=== PATIENT | female | born 1990 | race Caucasian/White ===

== ENCOUNTER 2019-07-21 17:25 | Emergency (ER) | payer OTHER, SELFPAY ==
[2019-07-21 17:27] VITALS: BP 144/100; PULSE 96; RESP 18; TEMP 37.2; O2SAT 100
[2019-07-21] MEDS: ONDANSETRON HCL ODT 4 MG TABLET PO (17:47)
[2019-07-21] MEDS: LORAZEPAM 1 MG TABLET PO (17:47)
--- NOTE | 2019-07-21 17:50 | PC.NURSE ---
Patient began complaining of nausea and verbal order for zofran was obtained.
[2019-07-21] MEDS: SODIUM CHLORIDE 0.9% IV 1,000 ML 999 ML IV CONT (18:38)
[2019-07-21] MEDS: KETOROLAC 30 MG/ML VIAL (*BKC) IV PUSH (18:39)
[2019-07-21 18:56] LABS: Basophils Percent Auto 0.2 % (0.2-1.2); Eosinophils Percent Auto 0.5 % (0-4.4); Hematocrit 41.9 % (37.0-47.0); Hemoglobin 13.5 g/dL (12.0-15.0); Immature Granulocyte Absolute 0.03 K/mm3 (0.00-0.031); Immature Granulocyte Percent A 0.3 % (0-0.5); Lymphocytes Absolute Auto 1.98 K/mm3 (0.9-3.2); Lymphocytes Percent Auto 23.1 % (18.3-44.2); Mean Corpuscular HGB Conc 32.2 g/dl (32-36); Mean Corpuscular Hemoglobin 27.6 pg (26-34); Mean Corpuscular Volume 85.7 fl (80-100); Monocytes Absolute Auto 0.6 K/mm3 (0.1-0.6); Monocytes Percent Auto 6.9 % (2.6-8.5); Neutrophils Absolute Auto 5.9 K/mm3 (1.3-6.7); Platelet Count Result 244 k/mm3 (150-375); Red Blood Count 4.89 M/mm3 (4.2-5.4); Red Cell Distribution Width 12.2 % (11.5-14.5); White Blood Count 8.6 K/mm3 (4.5-10.0)
[2019-07-21 19:17] LABS: Alanine Aminotransferase 11 U/L (4-35); Albumin Level 4.7 g/dL (3.5-5.1); Alkaline Phosphatase 53 U/L (38-126); Aspartate Amino Transferase 23 U/L (14-36); Bilirubin,Total 0.3 mg/dL (0.2-1.3); Blood Urea Nitrogen 8 mg/dL (7-17); Calcium 9.5 mg/dL (8.4-10.2); Carbon Dioxide 30 mmol/L (22-30); Chloride 103 mmol/L (98-107); Estimated CRCL calculation 114 ml/min; Estimated Glomerular Filt Rate > 60; Ethanol < 10 mg/dL (<10); Glucose 95 mg/dL (65-105); Potassium 3.8 mmol/L (3.4-5.0); Sodium 139 mmol/L (137-145)
[2019-07-21 19:19] LABS: Add Urine Microscopic? YES; Appearance Urine Clear (Clear); Bilirubin Urine Negative (Negative); Blood Urine Negative (Negative); Color Urine Colorless (Yellow); Glucose Urine UA 1+ mg/dL (Negative); Ketones Urine Negative (Negative); Leukocyte Esterase Ur Negative LEU/UL (Negative); Nitrate Urine Negative (Negative); Protein Urine Negative (Negative); RBC Urine 0-2 /hpf (0-2); Specific Grav Ur 1.006 (1.001-1.035); Urobilinogen Urine Negative mg/dL (<2.0); WBC Urine 0-3 /hpf
[2019-07-21] MEDS: LORAZEPAM INJ 2 MG/ML VIAL 1 MG IV PUSH (19:20)
[2019-07-21] MEDS: METOCLOPRAMIDE HCL INJ 10 MG/2 ML VIAL (19:20)
[2019-07-21 19:29] VITALS: BP 127/89; PULSE 91; RESP 18; O2SAT 97
[2019-07-21 19:30] LABS: Amphetamine Screen Urine Negative (Negative); Barbiturate Screen Urine Negative (Negative); Benzodiazepines Screen Urine Negative (Negative); Cannabinoid Screen Urine Positive (Negative); Cocaine Screen Urine Negative (Negative); Methadone Screen Urine Negative (Negative); Opiate Screen Urine Negative (Negative); Phencyclidine Screen Urine Negative (Negative)
[2019-07-21 19:39] LABS: Thyroid Stimulating Hormone 0.775 uIU/mL (0.465-4.680)
[2019-07-21 21:30] VITALS: BP 119/76; PULSE 82; RESP 12; TEMP 36.6; O2SAT 99
--- NOTE | 2019-07-21 21:42 | ED.ANXIETY ---
HPI - Anxiety General Chief Complaint: Anxiety <IGLESIA Corey Last Filed: 07/21/19 21:46> Stated Complaint: Nervous Breakdown <IGLESIA Corey Last Filed: 07/21/19 21:46> Time Seen by Provider: 07/21/19 17:32 <IGLESIA Corey Last Filed: 07/21/19 21:46> Source: patient <IGLESIA Corey Last Filed: 07/21/19 21:46> Mode of arrival: ambulatory <IGLESIA Corey Last Filed: 07/21/19 21:46> Limitations: no limitations <IGLESIA Corey Last Filed: 07/21/19 21:46> History of Present Illness HPI narrative: Patient is a 28-year-old female who presents emergency department for evaluation of anxiety and stress related to reconnecting with the paternal side of her family patient has been having a conflict with family over a new individual wanting to be involved in her life which has resulted in stress and anxiety and she presents having severe anxiety over the issue. Patient denies any homicidal or suicidal ideation or history of similar occurrence in the past. Patient has not taken anything for her symptoms other than her prescribed medications. Patient lives at home with her family and and children <IGLESIA Corey Last Filed: 07/21/19 21:46> Related Data Home Medications: Home Medications Medication Instructions Recorded Confirmed escitalopram oxalate [Lexapro] PO 07/21/19 <IGLESIA Corey Last Filed: 07/21/19 21:46> Allergies/Adverse Reactions: Allergies Allergy/AdvReac Type Severity Reaction Status Date / Time No Known Allergies Allergy Unverified 07/21/19 17:28 <IGLESIA Corey Last Filed: 07/21/19 21:46> Review of Systems Review of Systems: All systems reviewed & are unremarkable except as noted in HPI and below <IGLESIA Corey Last Filed: 07/21/19 21:46> [facility] [place] Past Medical History Medical History: Medical History (Updated 07/22/19 @ 00:00 by Background Bennett) Abnormal Pap smear of cervix Anxiety <IGLESIA Corey Last Filed: 07/21/19 21:46> Social History Social History: Social History Smoking status: Never smoker Alcohol intake: never Gender identity (if verbalized by the patient): Female <Terry Webb PA-C - Last Filed: 07/21/19 21:46> Exam Narrative: Exam Narrative: GENERAL: Well-appearing, well-nourished, and in no acute distress. HEAD: Normocephalic, atraumatic. EYES: PERRLA and EOMI. ENT: Nares clear, no rhinorrhea or epistaxis. Mucous membranes moist. CHEST: Clear to auscultation. No respiratory distress. No wheezes rales or rhonchi HEART: Regular rate and rhythm. No murmur heard. Normal peripheral pulses. ABDOMEN: Soft, nontender, nondistended EXTREMITIES: Normal range of motion. No edema. SKIN: Warm, dry, no rash. NEURO: No focal deficits. Alert and oriented x3. Cranial nerves II through XII grossly intact PSYCH: Normal mood and affect. <Terry Webb PA-C - Last Filed: 07/21/19 21:46> Course Course Emergency Course: Patient in the room in no distress aware of case findings treatment plan and diagnosis <Terry Webb PA-C - Last Filed: 07/21/19 21:46> Vital Signs Vital signs: Vital Signs Temperature 98.9 F 07/21/19 17:27 Pulse Rate 96 07/21/19 17:27 Respiratory Rate 18 07/21/19 17:27 Blood Pressure 144/100 H 07/21/19 17:27 Pulse Oximetry 100 07/21/19 17:27 Temperature 97.9 F 07/21/19 21:30 Pulse Rate 82 07/21/19 21:30 Respiratory Rate 12 07/21/19 21:30 Blood Pressure 119/76 07/21/19 21:30 Pulse Oximetry 99 07/21/19 21:30 <Terry Webb PA-C - Last Filed: 07/21/19 21:46> Vital Signs Temperature 98.9 F 07/21/19 17:27 Pulse Rate 96 07/21/19 17:27 Respiratory Rate 18 07/21/19 17:27 Blood Pressure 144/100 H 07/21/19 17:27 Pulse Oximetry 100 07/21/19 17:27
== END 2019-07-21 21:51 | disposition home or self-care (01) ==
PROVIDERS: Emergency Medicine Emergency Medical Services; Emergency Provider General Practice; PCP Family Medicine
DX: F41.9 Anxiety disorder, unspecified (principal); F43.9 Reaction to severe stress, unspecified
CPT/HCPCS: 36415; 80053; 80307; 81001; 81025; 84443; 85025; 96374; 96375; 99284; A9270; J1200; J1885; J2060; J2765; J7030

== ENCOUNTER 2019-11-28 06:48 | Outpatient (NON) | payer OTHER, SELFPAY ==
[2019-11-28 23:56] LABS: SARS-CoV-2 RNA PCR Negative
== END 2019-11-28 06:49 ==
LOC: ANHCOVIDDT 07:02
PROVIDERS: PCP Family Medicine; Visit Provider Nurse Practitioner Family
DX: Z20.828 Contact with and (suspected) exposure to other viral communicable diseases (principal); R05 Cough
CPT/HCPCS: 87635; C9803; U0003

== ENCOUNTER 2020-01-14 14:21 | Emergency (ER) | payer OTHER, SELFPAY ==
--- NOTE | ~2020-01-14 | CT_ITS ---
EXAMINATION: CT abdomen pelvis w con DATE: 01/14/2020 16:58 INDICATION: Left lower quadrant abdominal pain TECHNIQUE: Computed tomography (CT) of the abdomen and pelvis was performed with 100 cc Omnipaque 350 intravenous contrast. Automated exposure control and iterative reconstruction technique were employe d. Exam dose: 256.23 mGy-cm total exam DLP. COMPARISON: None. FINDINGS: There is a calcified granuloma of the lingula. The lung bases are clear of infiltrate or co nsolidation. Normal heart size. No pericardial or pleural effusion. Small hepatic dome cyst. The liver is otherwise unremarkable. Normal splenic size. No pancreatic mass lesion or calcification or ductal dilatation. The gallbladder is contracted. No bile duct dilatation . Normal morphology of the adrenal glands. No renal mass lesion or urinary tract calculus or hydroureteronephrosis. No bowel obstruction, bowel wall thickening, pneumatosis or intraperitoneal free air. The abdominal aorta is of normal caliber. No intraperitoneal or retroperitoneal or pelvic mass lesion or adenopathy or ascites is evident. There are left ovarian cystic lesion measuring up to 2.3 cm. Right ovarian cyst measuring up to 1.3 c m. The uterus appears to be surgically absent. Included skeletal structures are unremarkable. IMPRESSION: Bilateral ovarian cysts, measuring up to approximately 2.3 cm on the left, 1.3 cm on the right Reviewed, dictated and finalized at [facility] Reviewed, dictated and finalized at [facility] [employer] IMPRESSION: Bilateral ovarian cysts, measuring up to approximately 2.3 cm on t he left, 1.3 cm on the right
[2020-01-14 14:46] VITALS: BP 112/74; PULSE 89; RESP 16; TEMP 36.3; O2SAT 98
[2020-01-14 15:01] LABS: Basophils Percent Auto 0.2 % (0.2-1.2); Eosinophils Absolute Auto 0.1 K/mm3 (0-0.3); Eosinophils Percent Auto 0.7 % (0-4.4); Hematocrit 40.6 % (37.0-47.0); Hemoglobin 12.8 g/dL (12.0-15.0); Immature Granulocyte Absolute 0.02 K/mm3 (0.00-0.031); Immature Granulocyte Percent A 0.2 % (0-0.5); Lymphocytes Absolute Auto 2.11 K/mm3 (0.9-3.2); Lymphocytes Percent Auto 25.5 % (18.3-44.2); Mean Corpuscular HGB Conc 31.5 g/dl (32-36); Mean Corpuscular Hemoglobin 27.6 pg (26-34); Mean Corpuscular Volume 87.7 fl (80-100); Monocytes Absolute Auto 0.5 K/mm3 (0.1-0.6); Monocytes Percent Auto 5.9 % (2.6-8.5); Neutrophils Absolute Auto 5.6 K/mm3 (1.3-6.7); Neutrophils Percent Auto 67.5 % (45.5-73.1); Platelet Count Result 232 k/mm3 (150-375); Red Blood Count 4.63 M/mm3 (4.2-5.4); Red Cell Distribution Width 12.5 % (11.5-14.5); White Blood Count 8.3 K/mm3 (4.5-10.0)
[2020-01-14 15:13] LABS: Add Urine Microscopic? YES; Appearance Urine Clear (Clear); Bilirubin Urine Negative (Negative); Blood Urine Negative (Negative); Color Urine Yellow (Yellow); Glucose Urine UA 1+ mg/dL (Negative); Ketones Urine Negative (Negative); Leukocyte Esterase Ur Negative LEU/UL (Negative); Mucus Urine Rare /lpf; Nitrate Urine Negative (Negative); Protein Urine Negative (Negative); RBC Urine 0-2 /hpf (0-2); Specific Grav Ur 1.019 (1.001-1.035); Squamous Epithelial Cell Urine Rare /hpf (Few); Urobilinogen Urine Negative mg/dL (<2.0); WBC Urine 0-3 /hpf
[2020-01-14 15:13] LABS: Alanine Aminotransferase 12 U/L (4-35); Albumin Level 4.1 g/dL (3.5-5.1); Alkaline Phosphatase 42 U/L (38-126); Anion Gap 6 mmol/L (8-16); Aspartate Amino Transferase 25 U/L (14-36); Bilirubin,Total 0.3 mg/dL (0.2-1.3); Blood Urea Nitrogen 11 mg/dL (7-17); Calcium 9.4 mg/dL (8.4-10.2); Carbon Dioxide 30 mmol/L (22-30); Chloride 101 mmol/L (98-107); Estimated CRCL calculation 98 ml/min; Estimated Glomerular Filt Rate > 60; Glucose 100 mg/dL (65-105); Lipase 38 U/L (23-300); Potassium 4.6 mmol/L (3.4-5.0); Sodium 137 mmol/L (137-145)
--- NOTE | 2020-01-14 16:24 | ED.GENADULT ---
HPI - General Adult General Chief complaint: Abdominal Pain Stated complaint: really bad pain in my side Time Seen by Provider: 01/14/20 16:14 Source: RN notes reviewed History of Present Illness HPI narrative: Patient presents to emergency department from home for left lower quadrant pain. Patient states pain began approximate 4 hours ago located left lower quadrant does not radiate described as sharp and stabbing patient states she has had a history of intermittent pain left lower quadrant is been diagnosed with ovarian cyst performed past. She states that she had a hysterectomy performed in [place] by Dr. Watt and at that time they evaluated her ovaries and noted no signs of any ovarian cyst at that time she denies any fevers or chills chest pain shortness of breath or any other symptoms at this time Related Data Allergies Allergy/AdvReac Type Severity Reaction Status Date / Time No Known Allergies Allergy Verified 01/14/20 14:50 Review of Systems Review of Systems: Narrative: Gen.: Denies fevers or chills ENT: Denies congestion Respiratory: Denies shortness of breath or cough CV: Denies chest pain or palpitations GI: See HPI denies burning, urgency, frequency or hematuria Musculoskeletal: Denies back pain or muscle pain Neuro: Denies numbness, tingling, weakness or focal weakness Skin: Denies rash Except as documented, all other systems reviewed and negative [facility] Past Medical History Medical History Abnormal Pap smear of cervix Anxiety Surgical History Surgical History S/P hysterectomy Social History Social History Smoking status: Never smoker Second hand tobacco smoke exposure: No Alcohol intake: current Substance use: never Substance use type: does not use Additional occupation/education comments: stay at home mom Gender identity (if verbalized by the patient): Female Exam Narrative: Exam Narrative: APPEARANCE: No acute distress, nontoxic, resting in bed HEENT: Normocephalic, atraumatic, OMM RESPIRATORY: No respiratory distress, clear to auscultation bilaterally with no rhonchi wheezing or rales CARDIOVASCULAR: RRR s murmur ABDOMINAL: Soft, nondistended, tender palpation left lower quadrant no tenderness in left upper quadrant right upper quadrant right lower quadrant no rebound or guarding MUSCULOSKELETAl: Moves all extremities. No clubbing, cyanosis or edema. NEURO: Awake and alert. Following commands, speech normal, no focal deficits SKIN:: Warm, dry. Normal Color PSYCHIATRIC: Normal affect/mood Course Course Emergency Course: Patient states that they are feeling much better at this time. States abdominal pain has resolved. Repeat abdominal exam shows the patient's abdomen to be soft and nontender. Discussed with patient results of workup and diagnosis. Discussed need for follow-up with primary care physician, reasons to return to the emergency department in proper use of medication. Patient understands and agrees to current treatment plan Vital Signs Vital signs: Vital Signs Temperature 97.3 F L 01/14/20 14:46 Pulse Rate 89 01/14/20 14:46 Respiratory Rate 16 01/14/20 14:46 Blood Pressure 112/74 01/14/20 14:46 Pulse Oximetry 98 01/14/20 14:46 Temperature 97.3 F L 01/14/20 14:46 Pulse Rate 89 01/14/20 14:46 Respiratory Rate 16 01/14/20 14:46 Blood Pressure 112/74 01/14/20 14:46 Pulse Oximetry 98 01/14/20 14:46 Medical Decision Making MDM Narrative Medical decision making narrative: Patient's abdomen is soft without significant pain or signs of surgical abdomen on serial exams. Lab and x-ray evaluations are reviewed and patient is felt to be a reasonable candidate for outpatient management. Patient was instructed as to limitations of x-ray and laboratory evaluation and encouraged to retu
[2020-01-14] MEDS: KETOROLAC 30 MG/ML VIAL (*BKC) IV PUSH (16:53)
[2020-01-14] MEDS: SODIUM CHLORIDE 0.9% IV 1,000 ML 999 ML IV CONT (16:53)
[2020-01-14] MEDS: ONDANSETRON INJ 4 MG/2 ML VIAL (16:54)
[2020-01-14 17:55] VITALS: BP 132/68; PULSE 88; RESP 16; O2SAT 98
== END 2020-01-14 18:02 | disposition home or self-care (01) ==
PROVIDERS: Emergency Medicine; Emergency Provider Emergency Medicine; PCP Family Medicine
DX: N83.202 Unspecified ovarian cyst, left side (principal)
CPT/HCPCS: 36415; 74177; 80053; 81001; 83690; 85025; 96374; 96375; 99284; J1885; J2405; J7030; Q9967